=== PATIENT | female | born 1990 | race Caucasian/White ===

== ENCOUNTER 2017-03-09 03:44 | Emergency (ER) | payer SELFPAY ==
[~2017-03-09 03:44] MED LIST: ALBUTEROL MININEB NEB; ALBUTEROL17 GM INH; ALBUTEROL20 ml INH; BACTRIM DS TABL1 TA1 PO; BACTRIM DS TABL1 TA2; BACTRIM DS TABL1 TA2 PO; BIRTH CONTROL PILL PO; COMBIVENT MININEB INH; DICLOFENAC SODI50 MG PO; FLAGYL PO; GLUCOPHAGE500 M1 PO; KEFLEX500 M1 PO; LISINOPRIL; LISINOPRIL10 MG PO; NO MEDICATIONS; NORVASC; ORTHO TRI-7 DAYSX 3 PO; PHENERGAN25 MG PO; PREDNISONE PO; TAPAZOLE10 MG PO; TESSALON PERLE100 M1 PO; TRI-LO-SPRINTE1 EACH PO; VICODIN PO; ZESTRIL10 M1 PO; [UNRECOGNIZED DRUG - OTHER] INH
== END 2017-03-09 04:09 | disposition home or self-care (01) ==
LOC: SED 03:44
DX: H11.31 Conjunctival hemorrhage, right eye (principal); H10.11 Acute atopic conjunctivitis, right eye; I10 Essential (primary) hypertension; E11.9 Type 2 diabetes mellitus without complications; J45.909 Unspecified asthma, uncomplicated
CPT/HCPCS: 96374; 99283; 99284

== ENCOUNTER 2017-06-25 10:54 | Inpatient (IN) | payer BC ==
--- NOTE | ~2017-06-25 | CT2 ---
[facility] A Service [facility] RADIOLOGY TEXT RESULTS PATIENT: KANU MONCADA LOCATION: SED : [birth year] UNIT #: [id number] AGE: [address]: Colin Antunez MD SEX: F ORDER DR: [id number] [place] [id number] E MR#: [id number] Acc #: [id number] NAME: KANU MONCADA : 1990 SEX: F STUDY DATE/TIME: 06/25/2017 12:56 UNIT: SED ROOM: STUDY DESCRIPTION: CT Abd and Pelv W Cont Attending Physician: Colin Antunez M.D. Ordering Physician: Colin Antunez M.D. Primary Care Physician: Mikey Kahn M.D. MEDICAL IMAGING REPORT This report is preliminary unless electronic signature is present. EXAM CT abdomen and pelvis with contrast INDICATIONS Generalized abdominal pain for the past 2 days with body aches, fever, nausea and vomiting. PROCEDURE Contrast-enhanced CT of the abdomen and pelvis. This CT exam was performed with one or more of the following radiation dose reduction techniques: automatic exposure control, adjustment of mA and/or kV according to patient size, and iterative reconstruction. COMPARISON 12/19/2012 FINDINGS Abdomen with contrast: Included lung bases clear. Liver borderline enlarged and 90.5 cm. Suspected mild steatosis. Spleen enlarged measuring 15 cm. Adrenal glands pancreas unremarkable. Previous cholecystectomy. Bowel loops are nondilated. Appendix is normal. Both kidneys show, perinephric haziness and striated nephrogram enhancement pattern. There is no hydronephrosis. Pelvis with contrast: No pelvic mass. No aggressive appearing bone lesion. IMPRESSION Both kidneys show perinephric haziness with a striated nephrogram enhancement pattern. This is nonspecific but can be seen in the setting of pyelonephritis or other inflammatory processes such as STS. [facility] A Service [facility] RADIOLOGY TEXT RESULTS PATIENT: KANU MONCADA LOCATION: SED : [birth year] UNIT #: [id number] AGE: [address]: Colin Antunez MD SEX: F ORDER DR: glomerulonephritis. There are a few ill-defined low-attenuation regions particularly the lower pole of the left kidney measuring up to 2.7 cm. No well-formed abscess seen at this time. Dictated by... Taz Chris M.D. THIS IS AN ELECTRONICALLY VERIFIED REPORT Taz Chris M.D. at 06/25/2017 5:00 PM EED/to TD: 06/25/2017 15:33 JOB #: [id number] MEDICAL IMAGING REPORT Page 1 of 1
--- NOTE | ~2017-06-25 | CR72 ---
[facility]. [facility] A Service of [facility] RADIOLOGY TEXT RESULTS PATIENT: KANU MONCADA LOCATION: SED : [birth year] UNIT #: [id number] AGE: [address]: Colin Antunez MD SEX: F ORDER DR: [id number] [place] [id number] E MR#: [id number] Acc #: [id number] NAME: KANU MONCADA : 1990 SEX: F STUDY DATE/TIME: 06/25/2017 12:00 UNIT: SED ROOM: STUDY DESCRIPTION: CR Chest Single View Portable Attending Physician: Colin Antunez M.D. Ordering Physician: Colin Antunez M.D. Primary Care Physician: Mikey Kahn M.D. MEDICAL IMAGING REPORT This report is preliminary unless electronic signature is present. EXAM Chest portable 06/25/2017 12 o'clock hours. HISTORY 26-year-old woman with shortness of air, fever and palpitations for 2 days. Body aches and nausea and vomiting. COMPARISON 08/05/2014. FINDINGS Portable upright chest demonstrates heart size at the upper limits of normal. Mediastinal and hilar contours are normal. The lungs are clear and there are no effusions. IMPRESSION No acute cardiopulmonary findings. Dictated by... Radha Tripp M.D. THIS IS AN ELECTRONICALLY VERIFIED REPORT Radha Tripp M.D. at 06/25/2017 4:16 PM SMM/chelo TD: 06/25/2017 15:00 JOB #: [id number] MEDICAL IMAGING REPORT Page 1 of 1
[2017-06-25] MEDS ORDERED: NORVASC PO (10:59)
[2017-06-25 11:28] LABS: URINE SOURCE CLEAN CATCH
[2017-06-25 11:30] LABS: URINE APPEARANCE CLOUDY; URINE BLOOD 3+ (NEG); URINE COLOR DK YELLOW; URINE GLUCOSE NEG (NORM); URINE KETONE NEG (NEG); URINE LEUKOCYTE ESTERASE 3+ (NEG); URINE NITRATE POS (NEG); URINE PROTEIN 2+ (NEG)
[2017-06-25 11:36] LABS: CULTURE INDICATED? YES; MICRO INDICATED? YES; URINE BACTERIA 2+ (NEG); URINE BILIRUBIN NEG (NEG); URINE RBC 25-50 /[HPF] (0-2); URINE SQUAMOUS EPITHELIAL CELL FEW /[HPF]; URINE WBC INNUM /[HPF] (0-5)
[2017-06-25 11:45] LABS: EOSINOPHIL# 0.1 X10e3 (0-0.7); EOSINOPHIL% 0.2 % (0.0-7.0); HEMATOCRIT 38.6 % (35.0-45.0); HEMOGLOBIN 12.8 gm/dL (12.0-16.0); LYMPHOCYTE% 2.2 % (17.0-45.0); MEAN CELL VOLUME 80.2 FL (83-96); MEAN CORPUSCULAR HEMOGLOBIN 26.5 PG (28-34); MEAN PLATELET VOLUME 8.3 FL (6.5-11.5); MONOCYTE# 2.7 X10e3 (0-1.0); NEUTROPHIL# 40.8 X10e3 (1.5-7.1); NEUTROPHIL% 91.6 % (40-75); PLATELET COUNT 242 X10e3 (140-420); RED BLOOD COUNT 4.82 X10e (3.90-5.30); RED CELL DISTRIBUTION WIDTH 14.6 % (11.0-15.5); WHITE BLOOD COUNT 44.5 X10e3 (4.0-10.5)
[2017-06-25 11:46] LABS: DIFF IND YES
[2017-06-25 11:51] LABS: ACETONE, SERUM 0 MG/DL (0-0)
[2017-06-25 11:52] LABS: BETA-HCG SCREEN-PREGNANCY NEG
[2017-06-25 12:02] LABS: ALBUMIN SERUM 2.9 g/dL (3.5-5.0); BILIRUBIN, DIRECT 1.5 mg/dL (0.0-0.2); BILIRUBIN,TOTAL 2.5 mg/dL (0.2-2.0); BUN/CREATININE RATIO 21.42; CALCIUM SERUM 8.6 mg/dL (8.4-10.2); CREATININE SERUM 0.7 mg/dL (0.6-1.4); GLOM FILT RATE Estimated 117.9 mL/min (>60); POTASSIUM 3.3 mmol/L (3.5-5.1); PROTEIN TOTAL SERUM 7.4 g/dL (6.0-8.3)
[2017-06-25 12:05] LABS: PLATELET ESTIMATE NORMAL (NORMAL); RBC NORMAL YES
[2017-06-25 12:13] LABS: AMPHETAMINE NEG (NEG); BARBITURATES NEG (NEG); BENZODIAZEPINES NEG (NEG); COCAINE NEG (NEG); MARIJUANA NEG (NEG); OPIATES NEG (NEG); TRICYCLIC ANTIDEPRESSANTS NEG (NEG); U METHADONE NEG (NEG)
[2017-07-01] MEDS ORDERED: NILSTAT PO (12:53)
[2017-07-01] MEDS ORDERED: LEVAQUIN750 MG PO (12:54)
== END 2017-07-01 15:46 | disposition home or self-care (01) | DRG 872 ==
LOC: SED 10:54 → C3A PCU 17:30
PROVIDERS: Emergency Medicine
PROC: 0DJ08ZZ Inspection of Upper Intestinal Tract, Via Natural or Artificial Opening Endoscopic (ICD-10-PCS; principal; 2017-06-30)
DX: A41.51 Sepsis due to Escherichia coli [E. coli] (principal); E87.8 Other disorders of electrolyte and fluid balance, not elsewhere classified; E44.0 Moderate protein-calorie malnutrition; R13.12 Dysphagia, oropharyngeal phase; E11.65 Type 2 diabetes mellitus with hyperglycemia; Z68.41 Body mass index [BMI] 40.0-44.9, adult; N10 Acute pyelonephritis; N39.0 Urinary tract infection, site not specified; B96.20 Unspecified Escherichia coli [E. coli] as the cause of diseases classified elsewhere; R65.20 Severe sepsis without septic shock; D50.9 Iron deficiency anemia, unspecified; J45.909 Unspecified asthma, uncomplicated; I10 Essential (primary) hypertension; E05.90 Thyrotoxicosis, unspecified without thyrotoxic crisis or storm; Q05.9 Spina bifida, unspecified; E87.6 Hypokalemia; E83.51 Hypocalcemia; E66.01 Morbid (severe) obesity due to excess calories; R19.7 Diarrhea, unspecified; K21.9 Gastro-esophageal reflux disease without esophagitis; Z88.5 Allergy status to narcotic agent; Z88.8 Allergy status to other drugs, medicaments and biological substances; Z91.040 Latex allergy status; Z90.49 Acquired absence of other specified parts of digestive tract; E28.2 Polycystic ovarian syndrome; Z83.3 Family history of diabetes mellitus
CPT/HCPCS: 36415; 71010; 74177; 74230; 80048; 80053; 80076; 80307; 81003; 82010; 82947; 83036; 83605; 83630; 83690; 83735; 84132; 84439; 84443; 84481; 84703; 85025; 85027; 87040; 87077; 87086; 87088; 87186; 87493; 92526; 92610; 92611; 96361; 96374; 96375; 99291; G8996-GN; G8997-GN; G8998-GN; J0692; J0696; J1200; J1450; J1885; J2250; J2270; J2405; J3010; J3260; J3475; Q9967